=== PATIENT | male | born 1950 | race Caucasian/White ===

== ENCOUNTER 2024-04-02 16:49 | Inpatient (IN) | payer MEDICARE, OTHER ==
[~2024-04-02] VITALS: Ht 188 cm; Wt 109.8 kg
[2024-04-02] MEDS ORDERED: AMLO10TA4 PO (17:40)
[2024-04-02] MEDS ORDERED: ACET-868 PO (17:40)
[2024-04-02] MEDS ORDERED: AMOX500C2 PO (17:40)
[2024-04-02] MEDS ORDERED: FOLI1TAB26 PO (17:40)
[2024-04-02] MEDS ORDERED: PROM118S5 PO (17:40)
[2024-04-02] MEDS ORDERED: SENN-287 PO (17:40)
[2024-04-02] MEDS ORDERED: QUET50TA PO (17:40)
[2024-04-02] MEDS ORDERED: TRAZ-182 PO (17:40)
[2024-04-02] MEDS ORDERED: DULO30CA2 PO (17:40)
[2024-04-02] MEDS ORDERED: TIOT18CA3 IH (17:40)
[2024-04-02] MEDS ORDERED: ZINC57OI3 TP (17:40)
[2024-04-02] MEDS ORDERED: ACET-2812 PO (17:40)
[2024-04-02 17:54] LABS: BASOPHILS # (AUTO) 0.1 K/uL (0.0-0.2); BASOPHILS % (AUTO) 1.1 % (0.0-2.0); EOSINOPHILS # (AUTO) 0.2 K/uL (0.0-0.7); EOSINOPHILS % (AUTO) 2.2 % (0.0-6.0); HEMATOCRIT 46 % (39-51); HEMOGLOBIN 15.7 g/dL (13.5-17.5); LYMPHOCYTES # (AUTO) 1.3 K/uL (0.8-4.8); LYMPHOCYTES % (AUTO) 18.4 % (20.0-44.0); MEAN CORPUSCULAR HEMOGLOBIN 29 PG (26.0-33.0); MEAN CORPUSCULAR HGB CONC 34 g/dl (31.0-36.0); MEAN CORPUSCULAR VOLUME 84 fL (80-96); MONOCYTES # (AUTO) 0.7 K/uL (0.1-1.30); NEUTROPHILS % (AUTO) 68.3 % (43.0-81.0); PLATELET COUNT (AUTO) 226 K/uL (150-450); RED BLOOD CELL COUNT(AUTO) 5.43 MIL/uL (4.5-6.0); RED CELL DISTRIBUTION WIDTH 14.5 % (11.5-15.0); WHITE BLOOD COUNT (AUTO) 7.3 K/uL (4.3-11.0)
[2024-04-02 18:01] LABS: CARBON DIOXIDE 26 mmol/L (21-32); CHLORIDE 100 mmol/L (98-107); CREATININE 1.2 mg/dL (0.6-1.3); GLUCOSE 203 mg/dL (74-106); POTASSIUM 4.3 mmol/L (3.5-5.1); SODIUM SERUM 133 mmol/L (136-145); UREA NITROGEN, BLOOD 20 mg/dL (7-18)
[2024-04-02] MEDS ORDERED: CYCLOBENZAPRINE 10 MG TABLET ONE (19:37)
[2024-04-02] MEDS: CYCLOBENZAPRINE 10 MG TABLET PO ONE (19:45)
[2024-04-02 20:43] VITALS: BP 122/79; TEMP 98.6; O2SAT 96
[2024-04-02] MEDS ORDERED: ACETAMINOPHEN 325 MG TABLET PO PRN (23:00)
[2024-04-02] MEDS ORDERED: D-METHORPHAN HB/PROMETH HCL 5 ML UDC PO PRN (23:00)
[2024-04-02] MEDS ORDERED: Z GUARD REMEDY 4 OZ OINT TP PRN (23:30)
[2024-04-02] MEDS ORDERED: MAGNESIUM HYDROXIDE 30 ML UDC PO PRN (23:30)
[2024-04-02] MEDS ORDERED: ZOLPIDEM TARTRATE 5 MG TABLET PO PRN (23:30)
[2024-04-02] MEDS ORDERED: MAG HYDROX/AL HYDROX/SIMETH 30 ML UDC PO PRN (23:30)
[2024-04-02] MEDS ORDERED: ONDANSETRON HCL/PF 4 MG/2 ML VIAL IVP PRN (23:30)
[2024-04-02] MEDS: ENOXAPARIN SODIUM 40 MG/0.4 ML DISP.SYRIN SQ SCH (23:38)
[2024-04-02] MEDS ORDERED: SENNOSIDES/DOCUSATE SODIUM 1 TAB TABLET PO PRN (23:45)
[2024-04-03] MEDS: ACETAMINOPHEN 325 MG TABLET PO PRN (02:40)
[2024-04-03 06:53] LABS: BASOPHILS # (AUTO) 0.1 K/uL (0.0-0.2); BASOPHILS % (AUTO) 0.9 % (0.0-2.0); EOSINOPHILS # (AUTO) 0.3 K/uL (0.0-0.7); EOSINOPHILS % (AUTO) 3.8 % (0.0-6.0); HEMATOCRIT 45 % (39-51); HEMOGLOBIN 15.6 g/dL (13.5-17.5); LYMPHOCYTES # (AUTO) 1.5 K/uL (0.8-4.8); LYMPHOCYTES % (AUTO) 22.8 % (20.0-44.0); MEAN CORPUSCULAR HEMOGLOBIN 29 PG (26.0-33.0); MEAN CORPUSCULAR HGB CONC 35 g/dl (31.0-36.0); MEAN CORPUSCULAR VOLUME 85 fL (80-96); MONOCYTES # (AUTO) 0.6 K/uL (0.1-1.30); MONOCYTES % (AUTO) 8.5 % (2.0-12.0); NEUTROPHILS # (AUTO) 4.3 K/uL (1.8-8.9); PLATELET COUNT (AUTO) 210 K/uL (150-450); RED BLOOD CELL COUNT(AUTO) 5.33 MIL/uL (4.5-6.0); RED CELL DISTRIBUTION WIDTH 14.2 % (11.5-15.0); WHITE BLOOD COUNT (AUTO) 6.7 K/uL (4.3-11.0)
[2024-04-03 07:08] LABS: APPEARANCE,URINE CLEAR (CLEAR); BILIRUBIN,URINE NEGATIVE (NEGATIVE); BLOOD, URINE NEGATIVE Ery/uL (NEGATIVE); COLOR,URINE YELLOW (YELLOW); KETONES,URINE NEGATIVE (NEGATIVE); LEUKOCYTE ESTERASE ,URINE NEGATIVE (NEGATIVE); NITRITE, URINE NEGATIVE (NEGATIVE); PH,URINE 5.5 (5.0-8.0); PROTEIN,URINE NEGATIVE (NEGATIVE); UGLUCOSE NEGATIVE (NEGATIVE); UROBILINOGEN,URINE 0.2 EU/dL (0.2)
[2024-04-03 07:10] LABS: ALBUMIN 3.3 g/dL (3.4-5.0); BILIRUBIN,DIRECT 0.1 mg/dL (0.0-0.2); BILIRUBIN,TOTAL 0.5 mg/dL (0.2-1.0); CALCIUM, SERUM 9.4 mg/dL (8.5-10.1); MAGNESIUM 2.2 mg/dL (1.8-2.4); PHOSPHORUS 3.5 mg/dL (2.5-4.9); POTASSIUM 3.8 mmol/L (3.5-5.1); TOTAL PROTEIN, SERUM 7.3 g/dL (6.4-8.2)
[2024-04-03 08:24] LABS: THYROID STIMULATING HORMONE 2.66 uIU/mL (0.358-3.74)
[2024-04-03 08:30] VITALS: BP 163/86; TEMP 98.1; O2SAT 94
[2024-04-03] MEDS: DULOXETINE HCL 30 MG CAPSULE.DR PO SCH (08:44)
[2024-04-03] MEDS: QUETIAPINE FUMARATE 25 MG TABLET PO SCH (08:44)
[2024-04-03] MEDS: MULTIVIT W/MINERALS 1 TAB TABLET PO SCH (08:45)
[2024-04-03] MEDS: PANTOPRAZOLE 40 MG TABLET.DR PO SCH (08:46)
[2024-04-03] MEDS: AMLODIPINE BESYLATE 10 MG TABLET PO SCH (08:46)
[2024-04-03] MEDS ORDERED: Medication Not On Formulary EA (Acetaminophen (Acetaminophen Er) 650 MG) PO SCH (09:00)
[2024-04-03] MEDS ORDERED: AMOXICILLIN TRIHYDRATE 500 MG CAPSULE PO SCH (11:00)
[2024-04-03 16:12] VITALS: BP 13/66; TEMP 98.6; O2SAT 96
[2024-04-03] MEDS: AMOXICILLIN TRIHYDRATE 250 MG CAPSULE PO SCH (16:54)
[2024-04-03 20:00] VITALS: BP 134/70; TEMP 98.2; O2SAT 94
[2024-04-03] MEDS: TRAZODONE 50 MG TABLET PO SCH (22:30)
[2024-04-04 07:25] LABS: BASOPHILS # (AUTO) 0.1 K/uL (0.0-0.2); BASOPHILS % (AUTO) 0.9 % (0.0-2.0); EOSINOPHILS # (AUTO) 0.2 K/uL (0.0-0.7); EOSINOPHILS % (AUTO) 4.3 % (0.0-6.0); HEMATOCRIT 45 % (39-51); HEMOGLOBIN 15.3 g/dL (13.5-17.5); LYMPHOCYTES # (AUTO) 1.5 K/uL (0.8-4.8); LYMPHOCYTES % (AUTO) 26.4 % (20.0-44.0); MEAN CORPUSCULAR HEMOGLOBIN 29 PG (26.0-33.0); MEAN CORPUSCULAR HGB CONC 34 g/dl (31.0-36.0); MEAN CORPUSCULAR VOLUME 86 fL (80-96); MONOCYTES # (AUTO) 0.6 K/uL (0.1-1.30); MONOCYTES % (AUTO) 9.8 % (2.0-12.0); NEUTROPHILS # (AUTO) 3.3 K/uL (1.8-8.9); NEUTROPHILS % (AUTO) 58.6 % (43.0-81.0); PLATELET COUNT (AUTO) 203 K/uL (150-450); RED BLOOD CELL COUNT(AUTO) 5.22 MIL/uL (4.5-6.0); WHITE BLOOD COUNT (AUTO) 5.6 K/uL (4.3-11.0)
[2024-04-04 08:00] VITALS: BP 115/84; TEMP 98.2; O2SAT 97
[2024-04-04 08:09] LABS: CALCIUM, SERUM 8.6 mg/dL (8.5-10.1); CREATININE 1.1 mg/dL (0.6-1.3)
[2024-04-04] MEDS: BACLOFEN (10 MG) 10 MG TABLET PO SCH (10:53)
[2024-04-04] MEDS ORDERED: KETOCONAZOLE SHAMPOO 120 ML BOTTLE TP PRN ×2 (12:30→17:00)
[2024-04-04 16:00] VITALS: BP 146/75; TEMP 98.1; O2SAT 97
[2024-04-04] MEDS: CLOTRIMAZOLE 1% 15 GM TUBE TP SCH (16:19)
[2024-04-04] MEDS ORDERED: KETOCONAZOLE SHAMPOO 120 ML BOTTLE TP SCH (17:00)
[2024-04-04 20:00] VITALS: BP 134/69; TEMP 97.6; O2SAT 93
[2024-04-04] MEDS: AMOX/CLAVULANATE 875 MG TABLET PO SCH (20:43)
[2024-04-05 07:00] VITALS: BP 159/75; TEMP 97.5; O2SAT 97
[2024-04-05 09:30] VITALS: BP 159/75
[2024-04-05] MEDS ORDERED: BACL10TA PO (09:33)
[2024-04-05] MEDS ORDERED: Ketoconazole TP (09:33)
[2024-04-05] MEDS ORDERED: AMOX1TAB16 PO (09:33)
[2024-04-05] MEDS ORDERED: CLOT15CR35 TP (09:33)
== END 2024-04-05 13:15 | DRG 641 ==
LOC: ER 16:49 → MED 20:21
PROVIDERS: ADMIT Nurse Practitioner Family; ATTEND Nurse Practitioner Acute Care
DX: E86.0 Dehydration (principal); R53.1 Weakness; E87.1 Hypo-osmolality and hyponatremia; E11.65 Type 2 diabetes mellitus with hyperglycemia; F32.A Depression, unspecified; E66.9 Obesity, unspecified; G89.29 Other chronic pain; I10 Essential (primary) hypertension; Z68.31 Body mass index [BMI] 31.0-31.9, adult; Z99.3 Dependence on wheelchair; F39 Unspecified mood [affective] disorder; H66.91 Otitis media, unspecified, right ear
CPT/HCPCS: 36415; 80048-TC; 80061-TC; 80076-TC; 83735-TC; 84100-TC; 84443-TC; 85025-TC; 87081-TC; 97110-TC; 97530-TC; G0378; J1650